=== PATIENT | female | born 1960 | race Caucasian/White ===

== ENCOUNTER → 2016-11-15 | Outpatient (CLI) | payer BC | LOC: COL.RAD 13:39 | DX: N30.21 Other chronic cystitis with hematuria (principal) | CPT/HCPCS: Q9967 ==

== ENCOUNTER 2020-05-02 15:24 | Day surgery (SDC) | payer BC ==
[~2020-05-02] VITALS: Ht 167.6 cm; Wt 105.9 kg
[2020-05-02] MEDS ORDERED: ZOCOR 20MG20 MG PO (15:56)
[2020-05-02] MEDS ORDERED: COZAAR 25MG25 MG/TAB PO (15:57)
[2020-05-02] MEDS ORDERED: ASPIRIN E.C. 8181 MG PO (15:57)
[2020-05-02] MEDS ORDERED: NORCO 325 MG-51 TAB PO (15:59)
[2020-05-02] MEDS ORDERED: LOPRESSOR 225 MG/TAB PO (15:59)
[2020-05-02] MEDS ORDERED: ONE-A-DAY ESSE1 EACH PO (16:27)
[2020-05-02] MEDS ORDERED: CALCIUM CITRAT200 M2 PO (16:28)
[2020-05-02 17:56] VITALS: BP 133/68; PULSE 80; TEMP 98.7
[2020-05-02 18:00] VITALS: BP 127/57; PULSE 72; TEMP 97
--- NOTE | 2020-05-02 18:00 | NUR ---
PATIENT ADMITED INTO ROOM 348 POST OP CYSTO WITH RIGHT RPG. NO STENT PLACED. A&O. VSS. DENIES PAIN. HEAD TO TOE ASSESSMENT WNL. NO C/O N/V. LIQUIDS AT BEDSIDE. DINNER TRAY ODERED. DAUGHTER AT BEDSIDE. PATIENT WILL DISCHARGE HOME LATER TONIGHT WHEN CRITERIA MEET.
[2020-05-02 18:15] VITALS: BP 133/68; PULSE 66
[2020-05-02 18:30] VITALS: BP 138/55; PULSE 76
[2020-05-02 18:45] VITALS: BP 119/63; PULSE 73
[2020-05-02 19:15] VITALS: BP 119/72; PULSE 77; TEMP 983.7
--- NOTE | 2020-05-02 19:15 | NUR ---
Pt. sitting up in bed at this time. Pt. is A&OX3, assessment complete. INT to rt. forearm patent. Pt. tolerating PO. Pt. request to get up to use the bathroom. Pt. able to get up and ambulate independently to the bathroom. Pt. able to urinate. Pt. denies pain. Pt. has met discharge criteria. Will complete discharge paper work.
--- NOTE | 2020-05-02 19:20 | NUR ---
Discharge paperwork reviewed with the pt. Pt. given health summary, discharge education, follow up information and medication rec. Pt. denies questions. INT discontinued to rt. forearm. Pt. dressed and escorted out by TIM Wu.
== END 2020-05-02 19:30 | disposition home or self-care (01) ==
LOC: SDCO 15:24 → SURG 17:55 → SDCO 19:30
DX: N20.1 Calculus of ureter (principal); I25.10 Atherosclerotic heart disease of native coronary artery without angina pectoris; E78.5 Hyperlipidemia, unspecified; I10 Essential (primary) hypertension; Z87.440 Personal history of urinary (tract) infections; Z79.82 Long term (current) use of aspirin; Z88.1 Allergy status to other antibiotic agents; Z88.8 Allergy status to other drugs, medicaments and biological substances; Z82.3 Family history of stroke; Z83.3 Family history of diabetes mellitus; I25.2 Old myocardial infarction; G89.29 Other chronic pain
CPT/HCPCS: OP; C1769; J0690; J2405; J2704; J3010; J7120; Q9967